=== PATIENT | male | born 1970 | race Caucasian/White ===

== ENCOUNTER 2017-03-24 16:00 | Emergency (ER) | payer OTHER ==
[~2017-03-24] VITALS: Ht 175.3 cm; Wt 77.3 kg
[~2017-03-24 16:00] MED LIST: ASPERDRINK81 MG PO; CRESTOR20 MG PO; HYDROCHLOROTHIA25 MG PO
[2017-03-24 19:57] VITALS: BP 161/108
== END 2017-03-24 19:58 | disposition home or self-care (01) ==
LOC: EME 16:00
DX: S46.911A Strain of unspecified muscle, fascia and tendon at shoulder and upper arm level, right arm, initial encounter (principal); S20.212A Contusion of left front wall of thorax, initial encounter; V49.40XA Driver injured in collision with unspecified motor vehicles in traffic accident, initial encounter; W22.10XA Striking against or struck by unspecified automobile airbag, initial encounter; Z82.49 Family history of ischemic heart disease and other diseases of the circulatory system
CPT/HCPCS: 71020; 73030; 99281; 99283